=== PATIENT | female | born 1935 | race Caucasian/White ===

== ENCOUNTER 2020-07-03 08:44 | Inpatient (IN) | payer MEDICARE, OTHER ==
[~2020-07-03] VITALS: Ht 167.6 cm; Wt 61.3 kg
[~2020-07-03 08:44] MED LIST: ASPIRIN 325MG325 MG PO; CEFUROXIME500 MG PO; HYDRALAZINE HC100 MG PO; KEFLEX CAP 500500 MG PO; LEVAQUIN500 MG PO; MUCUS RELIEF600 MG PO; PRANDIN1 MG PO; REQUIP0.5 MG PO; TESSALON PERLE100 MG PO; TOPROL XL50 MG PO; TRESIBA FL100 UNIT/1 SQ; ZANTAC150 MG PO; ZOCOR20 MG PO
[2020-07-03 09:34] LABS: HEMOGLOBIN 10.2 gm/dl (12.3-15.3); RED BLOOD COUNT 3.38 M/UL (4.00-5.10); WHITE BLOOD COUNT 23.5 K/UL (4.5-11.0)
[2020-07-03] MEDS ORDERED: FAMOTIDINE20 MG PO (10:47)
[2020-07-03] MEDS ORDERED: ASPIRIN 325MG325 MG PO (12:07)
[2020-07-03] MEDS ORDERED: NOVOLOG MI100 UNIT/1 SC (12:16)
[2020-07-03] MEDS ORDERED: MACROBID 100 M100 MG PO (12:20)
[2020-07-03] MEDS ORDERED: NITROGLYCERIN6.5 MG PO (17:28)
[2020-07-03] MEDS ORDERED: GLIPIZIDE ER10 MG PO (17:36)
[2020-07-03] MEDS ORDERED: ARICEPT10 MG PO (17:36)
[2020-07-03] MEDS ORDERED: CLONIDINE HCL0.2 MG PO (17:37)
[2020-07-04 06:49] LABS: HEMOGLOBIN 10.8 gm/dl (12.3-15.3); RED BLOOD COUNT 3.75 M/UL (4.00-5.10); WHITE BLOOD COUNT 16.3 K/UL (4.5-11.0)
[2020-07-05 05:36] LABS: HEMOGLOBIN 9.3 gm/dl (12.3-15.3); WHITE BLOOD COUNT 12.3 K/UL (4.5-11.0)
[2020-07-05 05:40] LABS: RED BLOOD COUNT 3.12 M/UL (4.00-5.10)
[2020-07-06 04:50] LABS: HEMOGLOBIN 9.4 gm/dl (12.3-15.3); RED BLOOD COUNT 3.19 M/UL (4.00-5.10); WHITE BLOOD COUNT 12.5 K/UL (4.5-11.0)
--- NOTE | 2020-07-06 12:58 | NUR ---
CHECKED PATIENT PULSE OX ON O23L VIA N/C AND PULSE OX READS 89-90%. DR. OGLESBY INCREASE PATIENT OXYGEN TO 024L.
[2020-07-07 04:22] LABS: HEMOGLOBIN 9.3 gm/dl (12.3-15.3); RED BLOOD COUNT 3.16 M/UL (4.00-5.10); WHITE BLOOD COUNT 11.9 K/UL (4.5-11.0)
--- NOTE | 2020-07-08 02:45 | NUR ---
07/06/20 DURING BEDSIDE REPORTING I CHANGED THE BED ALARM TO THE MIDDLE ALARM AND EXPLAINED TO THE NURSE THAT THE PT COULD MOVE QUICKLY. AT 2021 WHILE GOING TO HELP THE TECH IN 4013 I HEARD THE PT SAY "HELP". I FOUND THE PT BESIDE THE BED SITTING IN THE FLOOR. SHE SAID SHE SLID OFF THE SIDE OF THE BED WHEN SHE WAS GOING TO WASH DISHES. BED ALARM WAS NOT RESET. ASSESSMENT OF THE PT FINDS NO REDNESS, OR LOGAN NOTED. PT STATES NOTHING HURTS AND SHE DIDN'T HIT ANYTHING. CHARGE NURSE NOTIFIED, DR. FORD NOTIFIED. STRIP ALARM APPLIED, YELLOW GOWN, SOCKS AND BAND IN PLACE. FAMILY CALLED LATER IN THE EVENING AND I EXPLAINED THE EVENT TO HER SON SAVAGE. WE WILL CONTINUE TO MONITOR CLOSELY WITH INCREASED ROUNDING. CALL LIGHT, TABLE, PHONE AND BELONGING WITHIN REACH WITH FURTHER EDUCATION NEEDED. WHEN I SPOKE WITH THE TECH I ASK FOR US ALL TO MAKE SURE THE ALARM AN STRIP STAYS ON AND INCREASE OUR ROUNDING AND FALL PRECAUTIONS TO ENSURE THE PT'S SAFETY.
[2020-07-08 06:25] LABS: HEMOGLOBIN 9.4 gm/dl (12.3-15.3); RED BLOOD COUNT 3.24 M/UL (4.00-5.10); WHITE BLOOD COUNT 14.1 K/UL (4.5-11.0)
[2020-07-10 06:25] LABS: HEMOGLOBIN 8.4 gm/dl (12.3-15.3); WHITE BLOOD COUNT 13.5 K/UL (4.5-11.0)
[2020-07-10 06:27] LABS: RED BLOOD COUNT 2.86 M/UL (4.00-5.10)
[2020-07-10] MEDS ORDERED: CEFPODOXIME PR200 MG PO (15:15)
[2020-10-13] MEDS ORDERED: ASPIRIN EC325 MG PO (10:35)
== END 2020-07-10 17:54 | disposition home or self-care (01) | DRG 871 ==
LOC: ER1 08:44 → CDU 10:38 → MED SURG 4 10:38
PROVIDERS: Internal Medicine; Nurse Practitioner; Physician Assistant; ADMIT Internal Medicine
DX: A41.9 Sepsis, unspecified organism (principal); J18.9 Pneumonia, unspecified organism; J96.01 Acute respiratory failure with hypoxia; G93.41 Metabolic encephalopathy; E87.1 Hypo-osmolality and hyponatremia; I13.0 Hypertensive heart and chronic kidney disease with heart failure and stage 1 through stage 4 chronic kidney disease, or unspecified chronic kidney disease; N17.9 Acute kidney failure, unspecified; N18.30 Chronic kidney disease, stage 3 unspecified; F03.90 Unspecified dementia, unspecified severity, without behavioral disturbance, psychotic disturbance, mood disturbance, and anxiety; Z20.822 Contact with and (suspected) exposure to COVID-19; K21.9 Gastro-esophageal reflux disease without esophagitis; E78.5 Hyperlipidemia, unspecified; E11.22 Type 2 diabetes mellitus with diabetic chronic kidney disease; D63.1 Anemia in chronic kidney disease; I50.9 Heart failure, unspecified; E87.6 Hypokalemia; Z87.09 Personal history of other diseases of the respiratory system; Z85.528 Personal history of other malignant neoplasm of kidney; Z90.5 Acquired absence of kidney; Z88.2 Allergy status to sulfonamides; Z87.440 Personal history of urinary (tract) infections; Z79.82 Long term (current) use of aspirin; Z79.4 Long term (current) use of insulin; Z79.02 Long term (current) use of antithrombotics/antiplatelets; Z79.01 Long term (current) use of anticoagulants; Z83.3 Family history of diabetes mellitus; Z82.49 Family history of ischemic heart disease and other diseases of the circulatory system
CPT/HCPCS: 0240U; 36415; 36600; 70450; 71045; 71046; 80048; 80053; 80202; 81001; 82140; 82550; 82553; 82803; 82962; 83036; 83605; 83735; 83874; 84100; 84484; 85025; 86140; 87040; 87086; 92610; 96365; 96366; 96372; 96375; 96376; 97110-GP-CQ; 97116; 97116-GP-CQ; 97162; 97530; 99285; J0692; J2185; J3370; J7030; J7040; J7050

== ENCOUNTER 2020-07-14 08:47 | Inpatient (IN) | payer OTHER ==
[~2020-07-14] VITALS: Ht 167.6 cm; Wt 59.0 kg
[~2020-07-14 08:47] MED LIST changes: +ARICEPT10 MG PO; +CEFPODOXIME PR200 MG PO; +CLONIDINE HCL0.2 MG PO; +FAMOTIDINE20 MG PO; +GLIPIZIDE ER10 MG PO; +MACROBID 100 M100 MG PO; +NITROGLYCERIN6.5 MG PO; +NOVOLOG MI100 UNIT/1 SC
[2020-07-14 09:40] LABS: HEMOGLOBIN 7.9 gm/dl (12.3-15.3); RED BLOOD COUNT 2.67 M/UL (4.00-5.10); WHITE BLOOD COUNT 23.7 K/UL (4.5-11.0)
[2020-07-15 04:41] LABS: HEMOGLOBIN 7.6 gm/dl (12.3-15.3); RED BLOOD COUNT 2.61 M/UL (4.00-5.10)
--- NOTE | 2020-07-15 18:23 | NUR ---
MD NOTIFIED AT 0900 OF PATIENT SOB PT HAS HAD INT LOW O2 SATS MD AWARE BREATHING TREATMENTS ADMINISTERED, WCTM.
[2020-07-16 04:13] LABS: HEMOGLOBIN 7.2 gm/dl (12.3-15.3); RED BLOOD COUNT 2.49 M/UL (4.00-5.10); WHITE BLOOD COUNT 14.9 K/UL (4.5-11.0)
[2020-07-17 05:00] LABS: HEMOGLOBIN 7.2 gm/dl (12.3-15.3); RED BLOOD COUNT 2.52 M/UL (4.00-5.10)
[2020-07-18 05:05] LABS: RED BLOOD COUNT 2.36 M/UL (4.00-5.10); WHITE BLOOD COUNT 9.5 K/UL (4.5-11.0)
[2020-07-18 05:10] LABS: HEMOGLOBIN 6.9 gm/dl (12.3-15.3)
[2020-07-18 18:29] LABS: HEMOGLOBIN 8.8 gm/dl (12.3-15.3)
[2020-07-19 04:49] LABS: HEMOGLOBIN 8.6 gm/dl (12.3-15.3); WHITE BLOOD COUNT 10.2 K/UL (4.5-11.0)
[2020-07-20 04:18] LABS: HEMOGLOBIN 9.4 gm/dl (12.3-15.3); RED BLOOD COUNT 3.23 M/UL (4.00-5.10); WHITE BLOOD COUNT 11.5 K/UL (4.5-11.0)
[2020-07-21 05:21] LABS: HEMOGLOBIN 8.2 gm/dl (12.3-15.3); WHITE BLOOD COUNT 11.6 K/UL (4.5-11.0)
[2020-07-21 05:31] LABS: RED BLOOD COUNT 2.82 M/UL (4.00-5.10)
[2020-07-22 03:03] LABS: HEMOGLOBIN 8.6 gm/dl (12.3-15.3); RED BLOOD COUNT 2.94 M/UL (4.00-5.10); WHITE BLOOD COUNT 10.2 K/UL (4.5-11.0)
[2020-07-23 04:23] LABS: HEMOGLOBIN 9.5 gm/dl (12.3-15.3)
[2020-07-23 04:39] LABS: RED BLOOD COUNT 3.29 M/UL (4.00-5.10); WHITE BLOOD COUNT 13.6 K/UL (4.5-11.0)
[2020-07-24 04:12] LABS: HEMOGLOBIN 8.8 gm/dl (12.3-15.3); RED BLOOD COUNT 3.07 M/UL (4.00-5.10)
[2020-07-24 04:18] LABS: WHITE BLOOD COUNT 9.3 K/UL (4.5-11.0)
[2020-07-24] MEDS ORDERED: FERROUS GLUCON324 M1 PO (09:55)
[2020-07-24] MEDS ORDERED: LASIX TAB 20 MG20 MG PO (09:55)
[2020-07-24] MEDS ORDERED: PROTONIX 40 MG40 M1 PO (09:55)
[2020-07-24] MEDS ORDERED: LEVOFLOXACIN250 MG PO ×2 (09:55→10:05)
[2020-07-24] MEDS ORDERED: MELATONIN5 M2 PO (09:55)
[2020-07-24] MEDS ORDERED: ASPIRIN EC81 MG PO (09:58)
[2020-07-24] MEDS ORDERED: IPRAT-ALBUT 0.5-3 ML INH (09:58)
[2020-07-24] MEDS ORDERED: TOPROL XL50 MG PO (10:58)
[2020-10-13] MEDS ORDERED: ASPIRIN EC325 MG PO (10:35)
== END 2020-07-24 12:53 | disposition home health service (06) | DRG 871 ==
LOC: ER1 08:47 → M/S 11:10 → CDU 11:10 → CCU 11:10 → M/S 13:07 → CCU 07-16 12:12 → MED SURG 4 07-21 15:10
PROVIDERS: Internal Medicine; Internal Medicine Pulmonary Disease; Physician Assistant; ADMIT Internal Medicine
PROC: B24BZZZ Ultrasonography of Heart with Aorta (ICD-10-PCS; principal; 2020-07-15)
PROC: 5A09357 Assistance with Respiratory Ventilation, Less than 24 Consecutive Hours, Continuous Positive Airway Pressure (ICD-10-PCS; 2020-07-16)
PROC: 5A0935A Assistance with Respiratory Ventilation, Less than 24 Consecutive Hours, High Flow/Velocity Cannula (ICD-10-PCS; 2020-07-16)
PROC: 30233N1 Transfusion of Nonautologous Red Blood Cells into Peripheral Vein, Percutaneous Approach (ICD-10-PCS; 2020-07-18)
DX: A41.50 Gram-negative sepsis, unspecified (principal); J80 Acute respiratory distress syndrome; J15.212 Pneumonia due to Methicillin resistant Staphylococcus aureus; J15.1 Pneumonia due to Pseudomonas; J15.6 Pneumonia due to other Gram-negative bacteria; N17.9 Acute kidney failure, unspecified; J90 Pleural effusion, not elsewhere classified; I47.1 Supraventricular tachycardia; I13.0 Hypertensive heart and chronic kidney disease with heart failure and stage 1 through stage 4 chronic kidney disease, or unspecified chronic kidney disease; Z20.822 Contact with and (suspected) exposure to COVID-19; A41.02 Sepsis due to Methicillin resistant Staphylococcus aureus; A41.52 Sepsis due to Pseudomonas; R65.20 Severe sepsis without septic shock; Y95 Nosocomial condition; E11.22 Type 2 diabetes mellitus with diabetic chronic kidney disease; N18.30 Chronic kidney disease, stage 3 unspecified; F03.90 Unspecified dementia, unspecified severity, without behavioral disturbance, psychotic disturbance, mood disturbance, and anxiety; K21.9 Gastro-esophageal reflux disease without esophagitis; D50.9 Iron deficiency anemia, unspecified; D63.1 Anemia in chronic kidney disease; E78.5 Hyperlipidemia, unspecified; R77.8 Other specified abnormalities of plasma proteins; E11.65 Type 2 diabetes mellitus with hyperglycemia; I50.9 Heart failure, unspecified; Z85.528 Personal history of other malignant neoplasm of kidney; Z90.5 Acquired absence of kidney; Z88.2 Allergy status to sulfonamides; Z79.82 Long term (current) use of aspirin; Z79.4 Long term (current) use of insulin; Z79.899 Other long term (current) drug therapy; Z87.891 Personal history of nicotine dependence; Z82.49 Family history of ischemic heart disease and other diseases of the circulatory system; Z83.3 Family history of diabetes mellitus; Z80.9 Family history of malignant neoplasm, unspecified; Z99.81 Dependence on supplemental oxygen
CPT/HCPCS: ECHO; 0240U; 36415; 36430; 36600; 71045; 74230; 80048; 80053; 80202; 81001; 82550; 82553; 82728; 82803; 82962; 83540; 83550; 83605; 83615; 83735; 83874; 83880; 84100; 84484; 85014; 85018; 85025; 85027; 86140; 86850; 86900; 86901; 86920; 87040; 87086; 92610; 92611-GN; 93005; 93306; 94640; 94664; 94760; 96372; 96374; 96375; 97110; 97110-GP-CQ; 97161; 97164; 97166; 97530; 97530-GP-CQ; 99285; J0692; J1205; J1756; J1940; J2185; J3370; J7030; J7040; J7070; P9016

== ENCOUNTER 2020-09-11 02:47 | Inpatient (IN) | payer MEDICARE, OTHER ==
[~2020-09-11] VITALS: Ht 167.6 cm; Wt 59.0 kg
[~2020-09-11 02:47] MED LIST changes: +ASPIRIN EC81 MG PO; +FERROUS GLUCON324 M1 PO; +IPRAT-ALBUT 0.5-3 ML INH; +LASIX TAB 20 MG20 MG PO; +LEVOFLOXACIN250 MG PO; +MELATONIN5 M2 PO; +PROTONIX 40 MG40 M1 PO
[2020-09-11 04:12] LABS: HEMOGLOBIN 11.4 gm/dl (12.3-15.3); RED BLOOD COUNT 3.91 M/UL (4.00-5.10)
[2020-09-11 04:58] LABS: WHITE BLOOD COUNT 16.8 K/UL (4.5-11.0)
[2020-09-11] MEDS ORDERED: COZAAR 25MG TAB25 MG PO (10:30)
[2020-09-11] MEDS ORDERED: LEVEMIR FL100 UNIT/1 SC (10:34)
[2020-09-11] MEDS ORDERED: MIRTAZAPINE7.5 MG PO (10:36)
[2020-09-11] MEDS ORDERED: METOPROLOL SUCC50 MG PO (10:55)
[2020-09-11] MEDS ORDERED: IPRAT-ALBUT 0.5-3 ML INH (12:24)
[2020-09-11] MEDS ORDERED: NORVASC10 MG PO (17:38)
[2020-09-12 05:26] LABS: HEMOGLOBIN 10.2 gm/dl (12.3-15.3)
[2020-09-12 05:51] LABS: RED BLOOD COUNT 3.48 M/UL (4.00-5.10); WHITE BLOOD COUNT 10.2 K/UL (4.5-11.0)
[2020-09-13 04:32] LABS: HEMOGLOBIN 9.8 gm/dl (12.3-15.3); RED BLOOD COUNT 3.37 M/UL (4.00-5.10)
[2020-09-13 04:35] LABS: WHITE BLOOD COUNT 7.4 K/UL (4.5-11.0)
[2020-09-15 02:59] LABS: HEMOGLOBIN 8.4 gm/dl (12.3-15.3)
[2020-09-15 03:03] LABS: RED BLOOD COUNT 2.93 M/UL (4.00-5.10)
[2020-09-15] MEDS ORDERED: AUGMENTIN 875-1 EACH PO (09:31)
[2020-10-13] MEDS ORDERED: ASPIRIN EC325 MG PO (10:35)
== END 2020-09-15 13:38 | disposition home or self-care (01) | DRG 178 ==
LOC: ER1 02:47 → M/S 09:14 → CDU 09:14 → M/S 11:11
PROVIDERS: Emergency Medicine; Physician Assistant; ADMIT Family Medicine
DX: J15.6 Pneumonia due to other Gram-negative bacteria (principal); I13.0 Hypertensive heart and chronic kidney disease with heart failure and stage 1 through stage 4 chronic kidney disease, or unspecified chronic kidney disease; I50.32 Chronic diastolic (congestive) heart failure; C64.9 Malignant neoplasm of unspecified kidney, except renal pelvis; J96.11 Chronic respiratory failure with hypoxia; Z20.822 Contact with and (suspected) exposure to COVID-19; I44.0 Atrioventricular block, first degree; F03.90 Unspecified dementia, unspecified severity, without behavioral disturbance, psychotic disturbance, mood disturbance, and anxiety; K59.00 Constipation, unspecified; F17.210 Nicotine dependence, cigarettes, uncomplicated; K21.9 Gastro-esophageal reflux disease without esophagitis; N18.30 Chronic kidney disease, stage 3 unspecified; E11.22 Type 2 diabetes mellitus with diabetic chronic kidney disease; R53.81 Other malaise; Z79.4 Long term (current) use of insulin; Z90.5 Acquired absence of kidney; Z88.2 Allergy status to sulfonamides; Z82.49 Family history of ischemic heart disease and other diseases of the circulatory system; Z83.3 Family history of diabetes mellitus; Z80.9 Family history of malignant neoplasm, unspecified; Z85.53 Personal history of malignant neoplasm of renal pelvis
CPT/HCPCS: 0240U; 36415; 71045; 80048; 80053; 80202; 81001; 82550; 82553; 82962; 83605; 83690; 84484; 85025; 85027; 87040; 93005; 96374; 97110; 97110-GP-CQ; 97116; 97116-GP-CQ; 97161; 97166; 97530; 97530-GP-CQ; 97535; 99285; J0692; J0696; J2405; J3370; J7030; J7070

== ENCOUNTER 2020-10-13 12:15 | Inpatient (IN) | payer MEDICARE, OTHER ==
[~2020-10-13] VITALS: Ht 162.6 cm; Wt 59.0 kg
[~2020-10-13 12:15] MED LIST changes: +ASPIRIN EC325 MG PO; +AUGMENTIN 875-1 EACH PO; +COZAAR 25MG TAB25 MG PO; +LEVEMIR FL100 UNIT/1 SC; +METOPROLOL SUCC50 MG PO; +MIRTAZAPINE7.5 MG PO; +NORVASC10 MG PO
[2020-10-13 12:53] LABS: HEMOGLOBIN 10.1 gm/dl (12.3-15.3); RED BLOOD COUNT 3.47 M/UL (4.00-5.10); WHITE BLOOD COUNT 28.5 K/UL (4.5-11.0)
[2020-10-13 13:21] LABS: BUN/CREATININE RATIO 21 (0-10)
--- NOTE | 2020-10-13 19:32 | NUR ---
notified DR COELHO TO [facility] HOME [facility]. DUE TO LETHARGY DR COELHO DOESNT WANT TO RESUME HOME MEDS UNTIL TOMORROW. RECIEVED ORDERS FOR SONB. WILL CONTINUE TO MONITOR.
[2020-10-14 04:29] LABS: HEMOGLOBIN 9.3 gm/dl (12.3-15.3); RED BLOOD COUNT 3.18 M/UL (4.00-5.10)
[2020-10-15 05:11] LABS: HEMOGLOBIN 9.9 gm/dl (12.3-15.3); RED BLOOD COUNT 3.44 M/UL (4.00-5.10)
[2020-10-15 05:12] LABS: WHITE BLOOD COUNT 9.7 K/UL (4.5-11.0)
[2020-10-16 04:17] LABS: HEMOGLOBIN 8.6 gm/dl (12.3-15.3); WHITE BLOOD COUNT 8.4 K/UL (4.5-11.0)
[2020-10-16 04:18] LABS: RED BLOOD COUNT 2.94 M/UL (4.00-5.10)
[2020-10-17 05:19] LABS: HEMOGLOBIN 8.1 gm/dl (12.3-15.3); WHITE BLOOD COUNT 6.6 K/UL (4.5-11.0)
[2020-10-18] MEDS ORDERED: OMNICEF 300 MG300 MG PO (12:39)
--- NOTE | 2020-10-18 18:52 | NUR ---
10/18/20 attempted to call report to [facility] x 2 with no call back.Haja Young
== END 2020-10-18 16:10 | disposition home or self-care (01) | DRG 871 ==
LOC: ER1 12:15 → CDU 16:18 → MED SURG 4 16:18
PROVIDERS: Family Medicine; Internal Medicine Nephrology; ADMIT Internal Medicine
DX: A41.9 Sepsis, unspecified organism (principal); J18.9 Pneumonia, unspecified organism; G93.41 Metabolic encephalopathy; N17.9 Acute kidney failure, unspecified; I50.32 Chronic diastolic (congestive) heart failure; I13.0 Hypertensive heart and chronic kidney disease with heart failure and stage 1 through stage 4 chronic kidney disease, or unspecified chronic kidney disease; N18.4 Chronic kidney disease, stage 4 (severe); Z20.822 Contact with and (suspected) exposure to COVID-19; R65.20 Severe sepsis without septic shock; N18.30 Chronic kidney disease, stage 3 unspecified; E11.22 Type 2 diabetes mellitus with diabetic chronic kidney disease; F03.90 Unspecified dementia, unspecified severity, without behavioral disturbance, psychotic disturbance, mood disturbance, and anxiety; N26.9 Renal sclerosis, unspecified; R80.9 Proteinuria, unspecified; N28.9 Disorder of kidney and ureter, unspecified; D63.1 Anemia in chronic kidney disease; E78.5 Hyperlipidemia, unspecified; E04.1 Nontoxic single thyroid nodule; K21.9 Gastro-esophageal reflux disease without esophagitis; Z88.2 Allergy status to sulfonamides; Z79.4 Long term (current) use of insulin; Z85.53 Personal history of malignant neoplasm of renal pelvis; Z82.49 Family history of ischemic heart disease and other diseases of the circulatory system; Z83.3 Family history of diabetes mellitus; Z80.9 Family history of malignant neoplasm, unspecified
CPT/HCPCS: 0240U; 36415; 71045; 80053; 80202; 81001; 82550; 82553; 82570; 82962; 83605; 83735; 84100; 84133; 84300; 84484; 85007; 85025; 85027; 85610; 87040; 87086; 89050; 94640; 94760; 96374; 99285; C9113; J1650; J2185; J2543; J3370; J7030; J7070; P9047

== ENCOUNTER → 2020-12-23 | Outpatient (CLI) | payer MEDICARE, OTHER ==
[~2020-12-23] MED LIST changes: +OMNICEF 300 MG300 MG PO
== END ==
LOC: LBRF 15:42
DX: N39.0 Urinary tract infection, site not specified (principal); I12.9 Hypertensive chronic kidney disease with stage 1 through stage 4 chronic kidney disease, or unspecified chronic kidney disease; N18.9 Chronic kidney disease, unspecified
CPT/HCPCS: 81001; 87086

== ENCOUNTER 2021-01-12 11:47 | Emergency (ER) | payer MEDICARE, OTHER ==
[2021-01-12 12:23] LABS: HEMOGLOBIN 8.3 gm/dl (12.3-15.3); RED BLOOD COUNT 2.95 M/UL (4.00-5.10); WHITE BLOOD COUNT 11.8 K/UL (4.5-11.0)
[2021-01-12] MEDS ORDERED: ZOFRAN ODT 4 MG4 MG SL (16:08)
== END 2021-01-12 19:15 | disposition home or self-care (01) ==
LOC: ER1 11:47
PROVIDERS: Student in an Organized Health Care Education/Training Program
DX: I11.0 Hypertensive heart disease with heart failure (principal); I50.9 Heart failure, unspecified; R41.0 Disorientation, unspecified; Z20.822 Contact with and (suspected) exposure to COVID-19
CPT/HCPCS: 70450; 71045; 80053; 81001; 82550; 82553; 83874; 83880; 84439; 84443; 84484; 85025; 87086; 99285; U0002

== ENCOUNTER 2021-01-19 09:41 | Inpatient (IN) | payer MEDICARE, OTHER ==
[~2021-01-19] VITALS: Ht 167.6 cm; Wt 68.3 kg
[~2021-01-19 09:41] MED LIST changes: -ASPIRIN EC325 MG PO; -REQUIP0.5 MG PO; -ZOCOR20 MG PO; +ZOFRAN ODT 4 MG4 MG SL
[2021-01-19] MEDS ORDERED: ASPIRIN EC81 MG PO (10:35)
[2021-01-19 10:36] LABS: BUN/CREATININE RATIO 12 (0-10)
[2021-01-19 10:45] LABS: RED BLOOD COUNT 2.47 M/UL (4.00-5.10); WHITE BLOOD COUNT 10.5 K/UL (4.5-11.0)
[2021-01-19 10:46] LABS: HEMOGLOBIN 6.9 gm/dl (12.3-15.3)
[2021-01-19] MEDS ORDERED: COMBIVENT RESPIM4 GM INH (12:24)
[2021-01-19] MEDS ORDERED: ZOCOR20 MG PO (17:37)
[2021-01-19] MEDS ORDERED: ROPINIROLE HCL0.5 MG PO (17:38)
[2021-01-20 04:57] LABS: HEMOGLOBIN 9.5 gm/dl (12.3-15.3); RED BLOOD COUNT 3.25 M/UL (4.00-5.10); WHITE BLOOD COUNT 7.2 K/UL (4.5-11.0)
[2021-01-21 04:03] LABS: HEMOGLOBIN 9.6 gm/dl (12.3-15.3); RED BLOOD COUNT 3.25 M/UL (4.00-5.10)
[2021-01-21 04:05] LABS: WHITE BLOOD COUNT 10.4 K/UL (4.5-11.0)
[2021-01-22 14:35] LABS: HEMOGLOBIN 9.7 gm/dl (12.3-15.3); RED BLOOD COUNT 3.3 M/UL (4.00-5.10); WHITE BLOOD COUNT 11.6 K/UL (4.5-11.0)
[2021-01-23 04:55] LABS: HEMOGLOBIN 9.2 gm/dl (12.3-15.3); RED BLOOD COUNT 3.17 M/UL (4.00-5.10); WHITE BLOOD COUNT 9.5 K/UL (4.5-11.0)
[2021-01-23 05:27] LABS: BUN/CREATININE RATIO 15 (0-10)
--- NOTE | 2021-01-23 16:09 | NUR ---
WILL TRANSFER TO 5107 REPORT GIVEN TO ALBERTO/COLE.
--- NOTE | 2021-01-23 18:20 | NUR ---
PT ARRIVED TO THE UNIT, SHE HAS HER CALL DODD AND PHONE IN REACH, SHE HAS BED ALARM ON AND WILL CONTINUE TO MONITOR.
--- NOTE | 2021-01-24 03:24 | NUR ---
PT INCONTINENT OF BOWEL FIRST ROUND. PT PLEASENTLY CONFUSED. MOVES ALL EXTREMITIES WITH DIRECTION. WCTM
[2021-01-24 12:35] LABS: HEMOGLOBIN 10.5 gm/dl (12.3-15.3); WHITE BLOOD COUNT 11.8 K/UL (4.5-11.0)
[2021-01-24 12:44] LABS: RED BLOOD COUNT 3.56 M/UL (4.00-5.10)
[2021-01-25 06:49] LABS: HEMOGLOBIN 9.7 gm/dl (12.3-15.3); RED BLOOD COUNT 3.37 M/UL (4.00-5.10); WHITE BLOOD COUNT 9.8 K/UL (4.5-11.0)
[2021-01-25 07:25] LABS: BUN/CREATININE RATIO 15 (0-10)
--- NOTE | 2021-01-26 02:28 | NUR ---
24 hour urine begin on 01-25-21 at 2330
[2021-01-26 06:26] LABS: HEMOGLOBIN 9.8 gm/dl (12.3-15.3); RED BLOOD COUNT 3.27 M/UL (4.00-5.10); WHITE BLOOD COUNT 9.8 K/UL (4.5-11.0)
[2021-01-26 06:50] LABS: BUN/CREATININE RATIO 14 (0-10)
[2021-01-27 07:01] LABS: HEMOGLOBIN 9.5 gm/dl (12.3-15.3); RED BLOOD COUNT 3.3 M/UL (4.00-5.10); WHITE BLOOD COUNT 9.5 K/UL (4.5-11.0)
[2021-01-27 08:03] LABS: URINE CREATININE 97.6 mg/dL
[2021-01-27 08:13] LABS: COMPLEMENT C3, SERUM 104 mg/dL (82-167)
[2021-01-27 15:14] LABS: A/G RATIO 0.7 (0.7-1.7); ALBUMIN 2.4 g/dL (2.9-4.4); ALPHA-1-GLOBULIN 0.3 g/dL (0.0-0.4); BETA GLOBULIN 0.8 g/dL (0.7-1.3); GAMMA GLOBULIN 1.5 g/dL (0.4-1.8); GLOBULIN, TOTAL 3.5 g/dL (2.2-3.9); IMMUNOGLOBULIN A, QN, SERUM 213 mg/dL (64-422); IMMUNOGLOBULIN G, QN, SERUM 1149 mg/dL (586-1602); IMMUNOGLOBULIN M, QN, SERUM 449 mg/dL (26-217); M-SPIKE Not Observed g/dL (Not Observed); PROTEIN, TOTAL, SERUM 5.9 g/dL (6.0-8.5)
[2021-01-27 17:09] LABS: ANTI-DSDNA ANTIBODIES 1 IU/mL (0-9)
[2021-01-28 07:15] LABS: HEMOGLOBIN 8.5 gm/dl (12.3-15.3); RED BLOOD COUNT 2.92 M/UL (4.00-5.10); WHITE BLOOD COUNT 9.9 K/UL (4.5-11.0)
[2021-01-28 15:14] LABS: BUN 55 mg/dL (8-27); UREA CLEARANCE 8 mL/min (40-100)
[2021-01-28 16:14] LABS: ANTIMYELOPEROXIDASE (MPO) ABS <9.0 U/mL (0.0-9.0); ANTIPROTEINASE 3 (PR-3) ABS <3.5 U/mL (0.0-3.5); ATYPICAL PANCA <1:20 titer (Neg:<1:20); CYTOPLASMIC (C-ANCA) <1:20 titer (Neg:<1:20); PERINUCLEAR (P-ANCA) >1:640 titer (Neg:<1:20)
[2021-01-29 09:22] LABS: HEMOGLOBIN 9.7 gm/dl (12.3-15.3); WHITE BLOOD COUNT 11.5 K/UL (4.5-11.0)
[2021-01-29 09:27] LABS: RED BLOOD COUNT 3.3 M/UL (4.00-5.10)
[2021-01-29 11:13] LABS: HBSAG SCREEN Negative (Negative); HEP A AB, IGM Negative (Negative); HEP B CORE AB, IGM Negative (Negative); HEP C VIRUS AB <0.1 (0.0-0.9)
[2021-01-30 06:11] LABS: HEMOGLOBIN 9.5 gm/dl (12.3-15.3); RED BLOOD COUNT 3.26 M/UL (4.00-5.10)
[2021-01-30 06:17] LABS: WHITE BLOOD COUNT 8.4 K/UL (4.5-11.0)
[2021-01-30 07:33] LABS: URINE CREATININE 74.5 mg/dL
[2021-01-31 07:38] LABS: HEMOGLOBIN 8.3 gm/dl (12.3-15.3); RED BLOOD COUNT 2.98 M/UL (4.00-5.10); WHITE BLOOD COUNT 7.8 K/UL (4.5-11.0)
[2021-02-01 06:24] LABS: RED BLOOD COUNT 3.07 M/UL (4.00-5.10); WHITE BLOOD COUNT 7.8 K/UL (4.5-11.0)
--- NOTE | 2021-02-01 11:24 | NUR ---
notified dr. doran of venofer iv and received instructions to give venofer
[2021-02-02 07:40] LABS: HEMOGLOBIN 7.7 gm/dl (12.3-15.3); WHITE BLOOD COUNT 8.2 K/UL (4.5-11.0)
[2021-02-02 07:41] LABS: RED BLOOD COUNT 2.72 M/UL (4.00-5.10)
[2021-02-03 03:06] LABS: RED BLOOD COUNT 2.72 M/UL (4.00-5.10); WHITE BLOOD COUNT 9.5 K/UL (4.5-11.0)
[2021-02-04 07:06] LABS: HEMOGLOBIN 8.5 gm/dl (12.3-15.3); RED BLOOD COUNT 2.91 M/UL (4.00-5.10)
[2021-02-05 03:42] LABS: HEMOGLOBIN 8.3 gm/dl (12.3-15.3); RED BLOOD COUNT 2.81 M/UL (4.00-5.10); WHITE BLOOD COUNT 9.4 K/UL (4.5-11.0)
[2021-02-06 06:45] LABS: HEMOGLOBIN 8.1 gm/dl (12.3-15.3); RED BLOOD COUNT 2.77 M/UL (4.00-5.10); WHITE BLOOD COUNT 8.7 K/UL (4.5-11.0)
[2021-02-08] MEDS ORDERED: METOPROLOL SUC100 MG PO (10:02)
[2021-02-08] MEDS ORDERED: FLU VACCINE IM (10:02)
[2021-02-08] MEDS ORDERED: HEARTBURN RELIE10 MG PO (10:02)
== END 2021-02-08 16:09 | disposition home health service (06) | DRG 673 ==
LOC: ER1 09:41 → PROG CARE 11:38 → M/S 11:38 → CDU 11:38 → PROG CARE 01-20 01:17 → M/S 01-23 17:53
PROVIDERS: Emergency Medicine; Internal Medicine; Internal Medicine Nephrology; ADMIT Family Medicine
PROC: 30233N1 Transfusion of Nonautologous Red Blood Cells into Peripheral Vein, Percutaneous Approach (ICD-10-PCS; principal; 2021-01-19)
PROC: 0JH63XZ Insertion of Tunneled Vascular Access Device into Chest Subcutaneous Tissue and Fascia, Percutaneous Approach (ICD-10-PCS; 2021-02-03)
PROC: 02HV33Z Insertion of Infusion Device into Superior Vena Cava, Percutaneous Approach (ICD-10-PCS; 2021-02-03)
PROC: 5A1D70Z Performance of Urinary Filtration, Intermittent, Less than 6 Hours Per Day (ICD-10-PCS; 2021-02-04)
DX: N17.0 Acute kidney failure with tubular necrosis (principal); I50.23 Acute on chronic systolic (congestive) heart failure; J96.21 Acute and chronic respiratory failure with hypoxia; J18.9 Pneumonia, unspecified organism; I13.2 Hypertensive heart and chronic kidney disease with heart failure and with stage 5 chronic kidney disease, or end stage renal disease; N39.0 Urinary tract infection, site not specified; E46 Unspecified protein-calorie malnutrition; Z68.1 Body mass index [BMI] 19.9 or less, adult; Q60.0 Renal agenesis, unilateral; C64.9 Malignant neoplasm of unspecified kidney, except renal pelvis; J44.0 Chronic obstructive pulmonary disease with (acute) lower respiratory infection; Z20.822 Contact with and (suspected) exposure to COVID-19; E87.6 Hypokalemia; N18.4 Chronic kidney disease, stage 4 (severe); N18.6 End stage renal disease; D50.9 Iron deficiency anemia, unspecified; E11.22 Type 2 diabetes mellitus with diabetic chronic kidney disease; E78.5 Hyperlipidemia, unspecified; I16.0 Hypertensive urgency; I25.10 Atherosclerotic heart disease of native coronary artery without angina pectoris; D63.1 Anemia in chronic kidney disease; E11.21 Type 2 diabetes mellitus with diabetic nephropathy; H26.9 Unspecified cataract; F17.220 Nicotine dependence, chewing tobacco, uncomplicated; F01.50 Vascular dementia, unspecified severity, without behavioral disturbance, psychotic disturbance, mood disturbance, and anxiety; Z90.5 Acquired absence of kidney; Z88.2 Allergy status to sulfonamides; Z88.8 Allergy status to other drugs, medicaments and biological substances; Z83.3 Family history of diabetes mellitus; Z83.6 Family history of other diseases of the respiratory system; Z82.3 Family history of stroke; Z82.49 Family history of ischemic heart disease and other diseases of the circulatory system; Z85.528 Personal history of other malignant neoplasm of kidney; Z99.2 Dependence on renal dialysis
CPT/HCPCS: ECHO; 36415; 36430; 36600; 51702; 71045; 77001; 80048; 80053; 80074; 81001; 82270; 82550; 82553; 82570; 82575; 82607; 82728; 82746; 82784; 82803; 82962; 83520; 83540; 83550; 83605; 83735; 83874; 83880; 84100; 84155; 84156; 84165; 84484; 85007; 85025; 85027; 85045; 86160; 86225; 86256; 86334; 86850; 86900; 86901; 86920; 87040; 90937; 93005; 93306; 94640; 94664; 94760; 96374; 96375; 97110; 97110-GP-CQ; 97116; 97116-GP-CQ; 97161; 97166; 97530; 97530-GP-CQ; 97535; 99285; C1750; C1752; C1769; C1788; J0690; J0696; J1642; J1644; J1756; J1940; J2001; J2704; J7030; J7040; J7120; P9016; P9047; U0002

== ENCOUNTER → 2021-04-14 | Outpatient (CLI) | payer MEDICARE, OTHER ==
[~2021-04-14] MED LIST changes: +AMLODIPINE BESY10 MG PO; +COMBIVENT RESPIM4 GM INH; +FLU VACCINE IM; +HEARTBURN RELIE10 MG PO; -LEVEMIR FL100 UNIT/1 SC; +LEVEMIR FL100 UNIT/1 SQ; +METOPROLOL SUC100 MG PO; +ROPINIROLE HCL0.5 MG PO; +ZOCOR20 MG PO
== END ==
LOC: EROP 15:53
DX: U07.1 COVID-19 (principal); Z23 Encounter for immunization
CPT/HCPCS: 96365

== ENCOUNTER 2021-04-17 19:44 | Inpatient (IN) | payer MEDICARE, OTHER ==
[~2021-04-17] VITALS: Ht 167.6 cm; Wt 63.5 kg
[~2021-04-17 19:44] MED LIST changes: -AMLODIPINE BESY10 MG PO
[2021-04-17 20:50] LABS: RED BLOOD COUNT 2.22 M/UL (4.00-5.10); WHITE BLOOD COUNT 12.4 K/UL (4.5-11.0)
[2021-04-17 21:23] LABS: BUN/CREATININE RATIO 8 (0-10)
[2021-04-18] MEDS ORDERED: AMLODIPINE BESY10 MG PO (04:47)
[2021-04-18] MEDS ORDERED: COZAAR 25MG TAB25 MG PO (04:48)
[2021-04-18 08:17] LABS: RED BLOOD COUNT 2.19 M/UL (4.00-5.10)
[2021-04-18 08:30] LABS: HEMOGLOBIN 6.6 gm/dl (12.3-15.3)
[2021-04-18 12:29] LABS: ACINETOBACTER BAUMANNII Not Detected (Negative); CANDIDA ALBICANS Not Detected (Negative); CANDIDA KRUSEI Not Detected (Negative); CANDIDA TROPICALIS Not Detected (Negative); ENTEROCOCCUS Not Detected (Negative); ESCHERICHIA COLI Not Detected (Negative); HAEMOPHILUS INFLUENZAE Not Detected (Negative); KLEBSIELLA OXYTOCA Not Detected (Negative); KLEBSIELLA PNEUMONIAE Not Detected (Negative); KPC-CARBAPENEM-RESISTANCE GENE Not Detected (Negative); PROTEUS Not Detected (Negative); PSEUDOMONAS AERUGINOSA Not Detected (Negative); SERRATIA MARCESANS Not Detected (Negative); STREP AGALACTIAE (GROUP B) Not Detected (Negative); STREP PYOGENES (GROUP A) Not Detected (Negative); STREPTOCOCCUS Not Detected (Negative); mecA (METHICILLIN RESIST GENE Not Detected (Negative); vanA/B (VANCOMYCIN RESIST GENE Not Detected (Negative)
[2021-04-18 15:29] LABS: STAPHYLOCOCCUS DETECTED (Negative); STAPHYLOCOCCUS AUREUS DETECTED (Negative)
[2021-04-19 08:22] LABS: RED BLOOD COUNT 3.11 M/UL (4.00-5.10); WHITE BLOOD COUNT 13.1 K/UL (4.5-11.0)
[2021-04-19 08:23] LABS: HEMOGLOBIN 9.8 gm/dl (12.3-15.3)
--- NOTE | 2021-04-19 17:01 | NUR ---
RN SPOKE WITH DR. CREWS EARLIER AND INFORMED HER OF DR. WHEELER'S NURSING COMMUNICATION TO BEGIN VANCOMYCIN (DOSED BY PHARMACY) IF DR. CREWS ALLOWED. MD STATED SHE WOULD LOOK AT CULTURE RESULTS AND CALL RN BACK.
[2021-04-20 07:58] LABS: HEMOGLOBIN 8.1 gm/dl (12.3-15.3); WHITE BLOOD COUNT 10.4 K/UL (4.5-11.0)
[2021-04-20 08:06] LABS: RED BLOOD COUNT 2.66 M/UL (4.00-5.10)
--- NOTE | 2021-04-20 10:33 | NUR ---
SPOKE WITH DR. CREWS ABOUT PATIENT'S BLOOD CULTURE RESULTS AND WHETHER OR NOT VANCOMYCIN NEEDED TO BE STARTED PER DR. WHEELER'S RECOMMENDATION. STATED PATIENT HAD "SENSITIVE STAPH" AND VANCOMYCIN WAS NOT NECESSARY AT THIS TIME.
[2021-04-21 03:52] LABS: HEMOGLOBIN 8.6 gm/dl (12.3-15.3); RED BLOOD COUNT 2.81 M/UL (4.00-5.10); WHITE BLOOD COUNT 10.2 K/UL (4.5-11.0)
[2021-04-21] MEDS ORDERED: VANCOMYCIN IV750 MG IV (10:14)
[2021-04-21] MEDS ORDERED: DECADRON6 MG PO (10:14)
--- NOTE | 2021-04-21 13:13 | NUR ---
SPOKE WITH DIALYSIS NURSE ABOUT PATIENT'S DIALYSIS. HE STATED THEY PULLED OFF 2 LITERS OF FLUID AND WOULD SEND PATIENT BACK TO FLOOR.
--- NOTE | 2021-04-21 17:57 | NUR ---
REPORT CALLED TO NEELIMA WITH [facility].
== END 2021-04-21 20:58 | disposition home health service (06) | DRG 177 ==
LOC: ER1 19:44 → MED SURG 4 22:26 → CDU 22:26 → MED SURG 4 04-18 00:15
PROVIDERS: Family Medicine; Internal Medicine; Internal Medicine Infectious Disease; Internal Medicine Nephrology; ADMIT Family Medicine
PROC: 8E0ZXY6 Isolation (ICD-10-PCS; principal; 2021-04-17)
PROC: 3E0333Z Introduction of Anti-inflammatory into Peripheral Vein, Percutaneous Approach (ICD-10-PCS; 2021-04-17)
PROC: XW033E5 Introduction of Remdesivir Anti-infective into Peripheral Vein, Percutaneous Approach, New Technology Group 5 (ICD-10-PCS; 2021-04-17)
PROC: 30233N1 Transfusion of Nonautologous Red Blood Cells into Peripheral Vein, Percutaneous Approach (ICD-10-PCS; 2021-04-18)
PROC: 5A1D70Z Performance of Urinary Filtration, Intermittent, Less than 6 Hours Per Day (ICD-10-PCS; 2021-04-19)
PROC: 5A1D70Z Performance of Urinary Filtration, Intermittent, Less than 6 Hours Per Day (ICD-10-PCS; 2021-04-21)
DX: U07.1 COVID-19 (principal); J12.82 Pneumonia due to coronavirus disease 2019; N18.6 End stage renal disease; G93.41 Metabolic encephalopathy; J96.21 Acute and chronic respiratory failure with hypoxia; I13.2 Hypertensive heart and chronic kidney disease with heart failure and with stage 5 chronic kidney disease, or end stage renal disease; N30.90 Cystitis, unspecified without hematuria; E11.22 Type 2 diabetes mellitus with diabetic chronic kidney disease; F03.90 Unspecified dementia, unspecified severity, without behavioral disturbance, psychotic disturbance, mood disturbance, and anxiety; K21.9 Gastro-esophageal reflux disease without esophagitis; B96.89 Other specified bacterial agents as the cause of diseases classified elsewhere; I48.91 Unspecified atrial fibrillation; D50.9 Iron deficiency anemia, unspecified; Z99.2 Dependence on renal dialysis; Z98.890 Other specified postprocedural states; Z88.2 Allergy status to sulfonamides; Z79.899 Other long term (current) drug therapy; Z79.82 Long term (current) use of aspirin
CPT/HCPCS: 36415; 36430; 51701; 71045; 80048; 80053; 80202; 81001; 82550; 82553; 82607; 82962; 83036; 83540; 83550; 83605; 83690; 83735; 83880; 84484; 85018; 85025; 85027; 85652; 86140; 86850; 86900; 86901; 86920; 87040; 87077; 87086; 87150; 87186; 90935; 90937; 93005; 94640; 94664; 94760; 99285; J0456; J0696; J1100; J3370; J7030; J7070; M0245; P9016; Q0245; U0002

== ENCOUNTER 2021-05-20 16:17 | Emergency (ER) | payer MEDICARE, OTHER ==
[~2021-05-20 16:17] MED LIST changes: +AMLODIPINE BESY10 MG PO; +DECADRON6 MG PO; +VANCOMYCIN IV750 MG IV
[2021-05-20 17:40] LABS: HEMOGLOBIN 7.3 gm/dl (12.3-15.3); RED BLOOD COUNT 2.33 M/UL (4.00-5.10); WHITE BLOOD COUNT 14.5 K/UL (4.5-11.0)
[2021-05-20 22:05] LABS: RED BLOOD COUNT 2.01 M/UL (4.00-5.10); WHITE BLOOD COUNT 10.1 K/UL (4.5-11.0)
[2021-05-20 22:06] LABS: HEMOGLOBIN 6.1 gm/dl (12.3-15.3)
[2021-05-21 02:36] LABS: HEMOGLOBIN 7.6 gm/dl (12.3-15.3)
== END 2021-05-21 03:11 | disposition home or self-care (01) ==
LOC: ER1 16:17
PROVIDERS: Emergency Medicine; Family Medicine
DX: T82.838A Hemorrhage due to vascular prosthetic devices, implants and grafts, initial encounter (principal); D62 Acute posthemorrhagic anemia; I13.11 Hypertensive heart and chronic kidney disease without heart failure, with stage 5 chronic kidney disease, or end stage renal disease; N18.6 End stage renal disease; Y83.8 Other surgical procedures as the cause of abnormal reaction of the patient, or of later complication, without mention of misadventure at the time of the procedure; Z99.81 Dependence on supplemental oxygen; Z99.2 Dependence on renal dialysis
CPT/HCPCS: 36430; 80048; 85014; 85018; 85025; 85610; 85730; 86850; 86900; 86901; 86920; 93005; 96374; 99284; J2405; P9016